=== PATIENT | male | born 2000 | race Hispanic/Latino ===

== ENCOUNTER 2020-09-18 14:45 | Emergency (ER) | payer OTHER, SELFPAY ==
--- NOTE | ~2020-09-18 | XR_ITS ---
EXAMINATION: XR ankle RT min 3V DATE: 09/18/2020 15:03 INDICATION: Right ankle pain. Injury. TECHNIQUE: 4 views of right ankle were obtained. COMPARISON: None. FINDINGS: Bone alignment is normal. No fracture. Joint spaces are well maintained. There is ankle sof t tissue swelling. IMPRESSION: 1. No fracture. Reviewed, dictated and finalized at location A. IMPRESSION: 1. No fracture.
[2020-09-18 14:52] VITALS: BP 138/66; PULSE 76; RESP 16; TEMP 36.6; O2SAT 99
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
== END 2020-09-18 15:18 | disposition home or self-care (01) ==
PROVIDERS: Emergency Provider Nurse Practitioner
DX: S93.401A Sprain of unspecified ligament of right ankle, initial encounter (principal); X50.9XXA Other and unspecified overexertion or strenuous movements or postures, initial encounter; J45.909 Unspecified asthma, uncomplicated; F17.200 Nicotine dependence, unspecified, uncomplicated
CPT/HCPCS: 73610; 99213; G0463

== ENCOUNTER 2021-03-05 16:16 | Emergency (ER) | payer OTHER, SELFPAY ==
[2021-03-05 16:24] VITALS: BP 156/69; PULSE 77; RESP 16; TEMP 36.7; O2SAT 100
--- NOTE | 2021-03-05 16:37 | ED.URI ---
HPI - URI/Sore Throat General Chief Complaint: Upper Respiratory Infection Stated Complaint: sinus infection Time Seen by Provider: 03/05/21 16:37 Source: patient and RN notes reviewed Mode of arrival: ambulatory Limitations: no limitations History of Present Illness HPI Narrative: 20-year-old male presents concern for sinus pressure, drainage, occasional sore throat, occasional cough. Reports 3-day history of symptoms. Reports he is tried intermittent [id number] medications with temporary relief. He denies fever, body aches, chills, sweats, shortness of breath, sinus pain, nausea, vomiting, diarrhea. He is fully vaccinated for Covid. MD elicited complaint: nasal congestion Related Data Allergies Allergy/AdvReac Type Severity Reaction Status Date / Time No Known Allergies Allergy Verified 03/05/21 16:35 Review of Systems Review of Systems: CONSTITUTIONAL: Denies malaise, chills, sweats, or fever. EYES: Denies visual changes, redness, or discharge. ENT: Reports rhinorrhea, congestion, occasional sore throat. Denies sinus pain, otalgia CARDIOVASCULAR: Denies chest pain, palpitations, or edema. RESPIRATORY: Reports occasional cough. Denies dyspnea. GASTROINTESTINAL: Denies abdominal pain, nausea, vomiting, diarrhea SKIN: Denies rash or itching. MUSCULOSKELETAL: Denies myalgia. NEUROLOGIC: Denies headache. All systems reviewed & are unremarkable except as noted in HPI and below PMFSH Past Medical History Medical History (Updated 03/05/21 @ 16:48 by Onelia Marte NP) ADHD Asthma Bronchitis Seasonal allergies Surgical History Surgical History Hx of tonsillectomy Social History Social History Tobacco type: e-cigarettes/vaping Comments At time of signature, agree with nursing past medical, surgical, social and family history. There is no relevant family history pertinent to the presenting complaint Exam Narrative: GENERAL: Well-appearing, well-nourished, and in no acute distress. HEAD: Normocephalic EYES: PERRLA, conjunctivae clear ENT: Nares clear, turbinates erythematous, clear discharge. Mucous membranes moist. TM pearly ellis with sharp light reflex bilaterally; no tragal tenderness. Oropharynx not erythematous without lesions. Tonsils not enlarged and without exudate, no drooling, no hoarseness, no trismus, uvula midline. NECK: Supple. No lymphadenopathy CHEST: Clear to auscultation, breath sounds equal. No wheezing, rhonchi, rales, or stridor. No respiratory distress, speaks in full sentences. HEART: Regular rate and rhythm. No murmur heard. SKIN: Warm, dry, no rash. NEURO: Alert and oriented x3. PSYCH: Normal mood and affect Course Course Emergency Course: Patient is aware of diagnosis, understands and agrees to treatment plan. Anticipatory guidance given. Patient agrees to follow-up as directed and is aware of reasons to seek care at the emergency department. Portions of this record may have been created with voice recognition software Vital Signs Vital signs: Vital Signs Temperature 98.1 F 03/05/21 16:24 Pulse Rate 77 03/05/21 16:24 Respiratory Rate 16 03/05/21 16:24 Blood Pressure 156/69 H 03/05/21 16:24 Pulse Oximetry 100 03/05/21 16:24 Temperature 98.1 F 03/05/21 16:24 Pulse Rate 77 03/05/21 16:24 Respiratory Rate 16 03/05/21 16:24 Blood Pressure 156/69 H 03/05/21 16:24 Pulse Oximetry 100 03/05/21 16:24 Reviewed. MDM - URI/Sore Throat MDM Narrative Medical decision making narrative: Differential diagnosis considered: Clement virus, strep pharyngitis, allergic rhinitis, upper respiratory tract infection, sinusitis, rhinosinusitis, nasopharyngitis. viral pharyngitis, otitis media, otitis externa, pneumonia, bronchitis, viral cough syndrome, viral syndrome, and influenza. Exam findings show no acute concerns or changes; patient is non-toxic appearing and is
== END 2021-03-05 16:55 | disposition home or self-care (01) ==
PROVIDERS: Emergency Provider Nurse Practitioner
DX: J06.9 Acute upper respiratory infection, unspecified (principal)
CPT/HCPCS: 99213; G0463

== ENCOUNTER 2021-08-13 16:26 | Emergency (ER) | payer SELFPAY ==
[2021-08-13 16:34] VITALS: BP 142/70; PULSE 81; RESP 18; TEMP 37.2; O2SAT 99
--- NOTE | 2021-08-13 16:34 | ED.URI ---
HPI - URI/Sore Throat General Chief Complaint: Upper Respiratory Infection Stated Complaint: Sinus and ear infection Time Seen by Provider: 08/13/21 16:35 Source: patient, RN notes reviewed and old records reviewed Mode of arrival: ambulatory Limitations: no limitations History of Present Illness HPI Narrative: 20-year-old male with a 2-day history of cough, congestion, day 1 had a sore throat, no longer has a sore throat. Denies fevers. Also complains of bilateral ear pain. Has tried taking Zyrtec, Flonase and DayQuil for 1 day. Reports intermittent cough Related Data Allergies Allergy/AdvReac Type Severity Reaction Status Date / Time No Known Allergies Allergy Verified 03/05/21 16:35 Review of Systems Review of Systems: All systems reviewed & are unremarkable except as noted in HPI and below Constitutional: Constitutional: Reports no additional constitutional complaints, Denies chills, Denies fever(s) and Denies headache(s) Eyes: Eyes: Reports no additional eye complaints ENT: Reports as per HPI, Denies vertigo, Denies dizziness, Denies headache(s), Denies nasal congestion and Reports sore throat (3 days ago) Cardiovascular: Cardiovascular: Reports no additional cardiovascular complaints, Denies chest pain, Denies syncope, Denies rapid heart rate and Denies dyspnea Respiratory: Respiratory: Reports as per HPI, Reports cough, Denies dyspnea and Denies wheezing Gastrointestinal: Gastrointestinal: Reports no additional gastrointestinal complaints, Denies abdominal pain, Denies diarrhea, Denies nausea and Denies vomiting Musculoskeletal: Musculoskeletal: Reports no additional musculoskeletal complaints and Denies numbness Integumentary/Breasts: Skin/Breast: Reports system reviewed and no additional complaints, except as docu Neurologic: Reports system reviewed and no additional complaints, except as documented, Denies vertigo, Denies dizziness, Denies syncope, Denies headache(s), Denies focal weakness and Denies numbness Psychiatric: Psychiatric: Reports no additional psychiatric complaints Allergic/Immunologic: Allergic/Immunologic: Reports no additional allergic/immunologic complaints and Denies wheezing PMFSH Past Medical History Medical History (Updated 08/14/21 @ 11:36 by Onelia Randhawa APRN) ADHD Asthma Bronchitis Seasonal allergies Surgical History Surgical History Hx of tonsillectomy Social History Social History Tobacco type: e-cigarettes/vaping Comments At the time of my signature, I reviewed and agree with the nursing past medical, surgical, social, and family history. There is no relevant family history pertinent to the patient complaint. Exam Const: General: cooperative, healthy appearing, no acute distress, well developed and alert Nutritional Appearance: well nourished Orientation/consciousness: patient oriented x3 Limitations: no limitations HENMT: Head: normal to inspection Ears: external ears normal, EAC's normal and TM abnormal with fluid behind the TM bilateral; not erythematous and with no loss of landmarks Throat: tonsils normal, uvula midline, postnasal drainage and no uvular edema Eyes: Conjunctivae: conjunctivae normal Pupils: Equal, round and reactive pupils present Neck: Neck: normal visual inspection, no lymphadenopathy and no meningeal signs Chest: Chest palpation & inspection: normal inspection of the chest Resp: Effort & Inspection: normal respiratory effort and no use of accessory muscles Auscultation: clear to auscultation bilaterally, no crackles, no rales, no rhonchi and no wheezes Cardio: Rate: regular rate Rhythm: regular rhythm Skin: General skin exam: normal color Rashes: no rashes Wounds: no wounds Neuro: General: patient oriented x3, moves all extremities, no meningeal signs and no focal motor deficits Cranial nerves: Yes Equal, round and reac
== END 2021-08-13 17:06 | disposition home or self-care (01) ==
PROVIDERS: Emergency Provider Nurse Practitioner
DX: R09.82 Postnasal drip (principal); J01.40 Acute pansinusitis, unspecified; F17.200 Nicotine dependence, unspecified, uncomplicated; J45.909 Unspecified asthma, uncomplicated
CPT/HCPCS: 87804; 99213; G0463

== ENCOUNTER 2022-05-23 08:21 | Emergency (ER) | payer OTHER, MEDICAID, SELFPAY ==
--- NOTE | 2022-05-23 08:24 | ED.URI ---
HPI - URI/Sore Throat General Chief Complaint: Upper Respiratory Infection Stated Complaint: uri Time Seen by Provider: 05/23/22 08:31 Source: patient, RN notes reviewed and old records reviewed Mode of arrival: ambulatory Limitations: no limitations History of Present Illness HPI Narrative: 21-year-old male presents to the [facility] with sinus congestion for 1 month. Reports that children have had RSV and viruses. Has not taken anything for his symptoms. Denies fevers, cough, chest pain or shortness of breath Denies abdominal pain Onset (ago): month(s) (1) Related Data Allergies Allergy/AdvReac Type Severity Reaction Status Date / Time No Known Allergies Allergy Verified 05/23/22 08:28 Review of Systems Review of Systems: All systems reviewed & are unremarkable except as noted in HPI and below Constitutional: Constitutional: Reports no additional constitutional complaints Eyes: Eyes: Reports no additional eye complaints ENT: Reports as per HPI and Reports nasal congestion Cardiovascular: Cardiovascular: Reports no additional cardiovascular complaints, Denies chest pain and Denies dyspnea Respiratory: Respiratory: Reports no additional respiratory complaints, Denies chest congestion, Denies cough and Denies dyspnea Gastrointestinal: Gastrointestinal: Reports no additional gastrointestinal complaints, Denies abdominal pain, Denies nausea and Denies vomiting Musculoskeletal: Musculoskeletal: Reports no additional musculoskeletal complaints Integumentary/Breasts: Skin/Breast: Reports system reviewed and no additional complaints, except as docu Neurologic: Reports system reviewed and no additional complaints, except as documented Psychiatric: Psychiatric: Reports no additional psychiatric complaints Allergic/Immunologic: Allergic/Immunologic: Reports no additional allergic/immunologic complaints PMFSH Past Medical History Medical History ADHD Asthma Bronchitis Seasonal allergies Surgical History Surgical History Hx of tonsillectomy Social History Social History Tobacco type: e-cigarettes/vaping Comments At the time of my signature, I reviewed and agree with the nursing past medical, surgical, social, and family history. There is no relevant family history pertinent to the patient complaint. Exam Const: General: cooperative, healthy appearing, comfortable, no acute distress, well developed, alert and well nourished Nutritional Appearance: well nourished Orientation/consciousness: patient oriented x3 Limitations: no limitations HENMT: Head: normal to inspection Ears: hearing grossly normal bilaterally and external ears normal Face/Nose/Sinus: Normal external nose present, Normal nares present, Normal nasal mucous membranes and turbinates present and normal facial exam Face and sinus: normal facial exam Mouth: Yes Normal oral and palatal mucosa present, Yes lip normal and Yes moist mucous membranes Throat: posterior oropharynx normal and uvula midline Eyes: General: appearance normal, both eyes and all related structures Alignment and Position: alignment normal Periorbital: periorbital findings normal Conjunctivae: conjunctivae normal Pupils: Equal, round and reactive pupils present EOM: EOMs intact bilaterally Neck: Neck: normal visual inspection, full ROM, no lymphadenopathy and no meningeal signs Chest: Chest palpation & inspection: normal inspection of the chest Resp: Effort & Inspection: normal respiratory effort and able to speak in complete sentences Auscultation: clear to auscultation bilaterally, no crackles, no rales, no rhonchi and no wheezes Cardio: Rate: regular rate Rhythm: regular rhythm Back/Spine/Pelvis: Cervical Spine: cervical ROM normal Thoracic/Lumbar Spine: No thoracic spinal tenderness Skin: General skin
[2022-05-23 08:33] VITALS: BP 138/67; PULSE 80; RESP 16; TEMP 36.6; O2SAT 99
== END 2022-05-23 08:47 | disposition home or self-care (01) ==
PROVIDERS: Emergency Provider Nurse Practitioner
DX: J06.9 Acute upper respiratory infection, unspecified (principal); F17.290 Nicotine dependence, other tobacco product, uncomplicated; J45.909 Unspecified asthma, uncomplicated
CPT/HCPCS: 99213; G0463

== ENCOUNTER 2022-12-21 15:55 | Emergency (ER) | payer OTHER, SELFPAY ==
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
[2022-12-21 16:15] VITALS: BP 115/54; PULSE 90; RESP 16; TEMP 36.8; O2SAT 98
== END 2022-12-21 17:08 | disposition home or self-care (01) ==
PROVIDERS: Emergency Provider Nurse Practitioner Family; PCP Internal Medicine Rheumatology
DX: S13.4XXA Sprain of ligaments of cervical spine, initial encounter (principal); V49.49XA Driver injured in collision with other motor vehicles in traffic accident, initial encounter; J45.909 Unspecified asthma, uncomplicated
CPT/HCPCS: 99213; G0463

== ENCOUNTER 2023-04-02 13:35 | Emergency (ER) | payer OTHER, SELFPAY ==
--- NOTE | ~2023-04-02 | XR_ITS ---
EXAMINATION: XR chest 2V DATE: 04/02/2023 14:04 INDICATION: Cough and congestion. Chest pain. TECHNIQUE: Frontal and lateral views of the chest were obtained. COMPARISON: Chest 2 views 12/10/2017 FINDINGS: There is no pneumonia, pleural effusion, or pneumothorax. The heart size is normal. IMPRESSION: 1. No acute cardiopulmonary disease. Reviewed, dictated and finalized at location E. [employer]
[2023-04-02 13:38] VITALS: BP 148/67; PULSE 100; RESP 18; TEMP 36.3; O2SAT 99
--- NOTE | 2023-04-02 14:47 | ED.URI ---
HPI - URI/Sore Throat General Chief Complaint: Upper Respiratory Infection Stated Complaint: cough Time Seen by Provider: 04/02/23 13:54 Source: patient Mode of arrival: ambulatory Limitations: no limitations History of Present Illness HPI Narrative: Patient is a 22-year-old male who presents the ED with report of a cough. Patient reports having a persistent cough for the last 4-5 days. Reports occasional production of sputum. He also reports chest and nasal congestion, rhinorrhea. Denies fevers. He was seen in urgent care and prescribed steroids which he does not feel have been helping. He has also been taking DayQuil at home. He has history of asthma, but denied improvement of his symptoms with his inhaler use. Denies wheezing. Denies shortness breath. Denies chest pain. Related Data Home Medications Medication Instructions Recorded Confirmed albuterol sulfate 90 mcg/actuation 2 puff inhalation Q4H 12/21/22 12/21/22 aerosol inhaler fexofenadine 180 mg tablet 180 mg PO DAILY 12/21/22 12/21/22 fluticasone propionate 50 2 spray intranasal DAILY 12/21/22 12/21/22 mcg/actuation nasal spray,suspension Allergies Allergy/AdvReac Type Severity Reaction Status Date / Time No Known Allergies Allergy Verified 04/02/23 14:34 Review of Systems Review of Systems: CONSTITUTIONAL: Denies fever, chills, or sweats. ENT: See HPI. CARDIOVASCULAR: Denies chest pain, palpitations, or edema. RESPIRATORY: See HPI. GASTROINTESTINAL: Denies abdominal pain, nausea, vomiting, or diarrhea. All systems reviewed & are unremarkable except as noted in HPI and below PMFSH Past Medical History Medical History ADHD Asthma Bronchitis Seasonal allergies Surgical History Surgical History Hx of tonsillectomy Social History Social History Tobacco type: e-cigarettes/vaping Exam Narrative: GENERAL: Well appearing, Obese with BMI 38.1, non-toxic, in no acute distress. HEAD: Normocephalic, atraumatic. NECK: Supple. No adenopathy, no masses. RESPIRATORY: Airway patent, respirations nonlabored. Clear to auscultation bilaterally, no rales, rhonchi, wheezing. No wheezing noted. Frequent coughing CARDIOVASCULAR: Regular rate and rhythm without murmurs, rubs, or gallops. Radial pulses 2+ and equal bilaterally. MUSCULOSKELETAL: Moves all extremities. No gross deformities. SKIN: Warm, dry, normal color. No rashes. NEURO: A&O X3. Speech clear. Cranial nerves II-XII grossly intact. Steady gait. No ataxic movements. PSYCHIATRIC: Appropriate mood and affect. Normal interaction. Course Vital Signs Vital signs: Vital Signs Temperature 97.4 F L 04/02/23 13:38 Pulse Rate 100 04/02/23 13:38 Respiratory Rate 18 04/02/23 13:38 Blood Pressure 148/67 H 04/02/23 13:38 Pulse Oximetry 99 04/02/23 13:38 Temperature 97.4 F L 04/02/23 13:38 Pulse Rate 100 04/02/23 13:38 Respiratory Rate 18 04/02/23 13:38 Blood Pressure 148/67 H 04/02/23 13:38 Pulse Oximetry 99 04/02/23 13:38 MDM - URI/Sore Throat MDM Narrative Medical decision making narrative: Patient presented ED with 4-5 day history cough, congestion, upper respiratory symptoms. Vitals stable upon arrival. Patient in no acute distress. Afebrile. Lungs clear on auscultation. COVID and influenza negative. Chest x-ray negative. Discussed likelihood of viral URI, management of such, will prescribe Tessalon Perles. Given return precautions. Discharged in stable condition. Medical Records Attestation: I reviewed the patient's medical records. Lab Data Attestation: I reviewed the patient's lab results. Labs: Lab Results 04/02/23 Range/Units 14:21 Influenza A (RT-PCR) Negative (Negative) Influenza B (RT-PCR) Negative (Negative)
[2023-04-02] MEDS: BENZONATATE 100 MG CAPSULE 200 MG PO (14:52)
[2023-04-02 15:12] LABS: Influenza A QL RT-PCR Negative (Negative); Influenza B QL RT-PCR Negative (Negative); SARS-CoV-2 RNA PCR Negative (Negative)
== END 2023-04-02 15:50 | disposition home or self-care (01) ==
LOC: ANHED 15:46
PROVIDERS: Emergency Provider Physician Assistant
DX: J06.9 Acute upper respiratory infection, unspecified (principal); F90.9 Attention-deficit hyperactivity disorder, unspecified type; J45.909 Unspecified asthma, uncomplicated
CPT/HCPCS: 71046; 87636; 99283; A9270

== ENCOUNTER 2023-09-23 21:00 | Emergency (ER) | payer OTHER, SELFPAY ==
[2023-09-23 21:03] VITALS: BP 149/94; PULSE 78; RESP 18; TEMP 36.4; O2SAT 100
[2023-09-23 22:34] VITALS: O2SAT 99
[2023-09-23 23:02] LABS: Strep Group A RT-PCR DETECTED (Negative)
[2023-09-23 23:14] LABS: Influenza A QL RT-PCR Negative (Negative); Influenza B QL RT-PCR Negative (Negative); RSV RNA, RT-PCR Negative (Negative); SARS-CoV-2 RNA PCR Negative (Negative)
--- NOTE | 2023-09-23 23:20 | ED.GENADULT ---
HPI - General Adult General Chief complaint: Unspecified Stated complaint: spitting up mucous, throat hurts Time Seen by Provider: 09/23/23 22:19 History of Present Illness HPI narrative: this is a 22-year-old male presenting with sore throat. Patient has had symptoms for 3 to days. He has had sinus congestion cough subjective fevers. He has a sick child at home. No chest pain difficulty breathing abdominal pain. Related Data Home Medications Medication Instructions Recorded Confirmed albuterol sulfate 90 mcg/actuation 2 puff inhalation Q4H 12/21/22 12/21/22 aerosol inhaler fexofenadine 180 mg tablet 180 mg PO DAILY 12/21/22 12/21/22 fluticasone propionate 50 2 spray intranasal DAILY 12/21/22 12/21/22 mcg/actuation nasal spray,suspension Allergies Allergy/AdvReac Type Severity Reaction Status Date / Time No Known Allergies Allergy Verified 09/23/23 21:01 [facility] Past Medical History Medical History (Updated 09/23/23 @ 23:26 by Fermin Romero MD) ADHD Asthma Bronchitis Seasonal allergies Surgical History Surgical History Hx of tonsillectomy Social History Social History Tobacco type: e-cigarettes/vaping Exam Narrative: APPEARANCE: No apparent distress. Head: Mild erythema of the posterior pharynx EYES: EOMI, NOSE: Atraumatic NECK: Trachea midline RESPIRATORY: No increased rate of breathing CTAB CARDIOVASCULAR: RRR, ABDOMINAL: Non-distended MUSCULOSKELETAl: No obvious deformities NEURO: Alert. Moving 4/4 extremities SKIN:: Warm, dry. Normal color PSYCHIATRIC: Normal affect Course Vital Signs Vital signs: Vital Signs Temperature 97.5 F L 09/23/23 21:03 Pulse Rate 78 09/23/23 21:03 Respiratory Rate 18 09/23/23 21:03 Blood Pressure 149/94 H 09/23/23 21:03 Pulse Oximetry 100 09/23/23 21:03 Oxygen Delivery Room Air 09/23/23 21:03 Temperature 97.5 F L 09/23/23 21:03 Pulse Rate 78 09/23/23 21:03 Respiratory Rate 18 09/23/23 21:03 Blood Pressure 149/94 H 09/23/23 21:03 Pulse Oximetry 99 09/23/23 22:34 Oxygen Delivery Room Air 09/23/23 22:34 Medical Decision Making MDM Narrative Medical decision making narrative: -Course: 22-year-old male presenting with sore throat. Strep positive. Treated with amoxicillin, dexamethasone and motrin/tylenol. Discharged primary care follow-up. return precautions given. -DDX includes but is not limited to: strep pharyngitis, viral pharyngitis, viral syndrome -Co-morbidities complicating care: asthma -Social determinants of health: Lawn care, denies drugs/etoh -Interventions: amoxicillin, dexamethasone Motrin, Tylenol -Shared decision making / Disposition: discharge -RX Amoxicillin, Motrin Tylenol Vital Signs Vital Signs: Vital Signs Temperature 97.5 F L 09/23/23 21:03 Pulse Rate 78 09/23/23 21:03 Respiratory Rate 18 09/23/23 21:03 Blood Pressure 149/94 H 09/23/23 21:03 Pulse Oximetry 100 09/23/23 21:03 Oxygen Delivery Room Air 09/23/23 21:03 Temperature 97.5 F L 09/23/23 21:03 Pulse Rate 78 09/23/23 21:03 Respiratory Rate 18 09/23/23 21:03 Blood Pressure 149/94 H 09/23/23 21:03 Pulse Oximetry 99 09/23/23 22:34 Oxygen Delivery Room Air 09/23/23 22:34 Lab Data Labs: Lab Results 09/23/23 Range/Units 22:30 Influenza A (RT-PCR) Negative (Negative) Influenza B (RT-PCR) Negative (Negative) RSV (RT-PCR) Negative (Negative) SARS-CoV-2 RNA (RT-PCR) Negative (Negative) Group A Strep (PCR) Detected A (Negative) Discharge Plan Discharge Clinical Impression: Strep pharyngitis Patient Disposition: Home, Self-Care Condition: Stable Instructions: Antibiotic Form, Pharyngitis (ED), Strep Throat (DC) Additional Instructions: You were seen in the emergency department for sore throat
[2023-09-23] MEDS: ACETAMINOPHEN 500 MG TABLET 1000 MG PO (23:39)
[2023-09-23] MEDS: AMOXICILLIN 500 MG CAPSULE PO (23:39)
[2023-09-23] MEDS: IBUPROFEN 400 MG TABLET 800 MG PO (23:39)
[2023-09-23] MEDS: dexAMETHasone SOD PHOS INJ 10 MG/ML 1 ML VIAL IM (23:40)
[2023-09-23 23:47] VITALS: BP 120/78; PULSE 86; RESP 16; O2SAT 98
== END 2023-09-23 23:48 | disposition home or self-care (01) ==
PROVIDERS: Emergency Provider Emergency Medicine
DX: J02.0 Streptococcal pharyngitis (principal); Z20.822 Contact with and (suspected) exposure to COVID-19; J45.909 Unspecified asthma, uncomplicated; F90.9 Attention-deficit hyperactivity disorder, unspecified type; F17.290 Nicotine dependence, other tobacco product, uncomplicated
CPT/HCPCS: 87637; 87651; 96372; 99283; A9270; J1100